=== PATIENT | female | born 1995 | race Caucasian/White ===

== ENCOUNTER 2016-07-03 11:17 | Emergency (ER) | payer SELFPAY ==
[~2016-07-03] VITALS: Ht 157.5 cm; Wt 63.5 kg
[2016-07-03 11:23] VITALS: BP 145/83
--- NOTE | 2016-07-03 11:27 | NUR ---
PT AMBULATED TO BED 5 AT THIS TIME.
--- NOTE | 2016-07-03 11:30 | NUR ---
20/F BIB SELF C/O RASH AT FACE , NECK ,BOTH ARMS, ANTERIOR OF BODY ,LEFT LEG X 2 DAYS AGO PT STATES PAIN ALL OF BODY. DENIES N/V/D; AAOX4 WITH EVEN AND STEADY GAIT; LUNGS CLEAR BL; HR EVEN AND REGULAR; PT DENIES ANY FEVER, CP OR SOB AT THIS TIME; PATIENT STATES PAIN OF 5/10 AT THIS TIME; VSS; PATIENT POSITIONED FOR COMFORT; HOB ELEVATED; BEDRAILS UP X2; BED DOWN. ER MD MADE AWARE OF PT STATUS.
--- NOTE | 2016-07-03 11:44 | NUR ---
ER MD DR DUDLEY EVALUATING PT AT BEDSIDE
[2016-07-03 12:00] VITALS: BP 120/72
--- NOTE | 2016-07-03 12:00 | NUR ---
Patient discharged with v/s stable. Written and verbal after care instructions given and explained. Patient alert, oriented and verbalized understanding of instructions. Ambulatory with steady gait. All questions addressed prior to discharge. ID band removed. Patient advised to follow up with PMD. Rx of BENADRYL ALLERGY & PREDNISONE given. Patient educated on indication of medication including possible reaction and side effects. Opportunity to ask questions provided and answered.
== END 2016-07-03 12:00 | disposition home or self-care (01) ==
LOC: MED 11:17
DX: R21 Rash and other nonspecific skin eruption (principal)

== ENCOUNTER 2017-06-12 22:01 | Emergency (ER) | payer OTHER ==
[~2017-06-12] VITALS: Ht 157.5 cm; Wt 70.8 kg
[2017-06-12 22:04] VITALS: BP 116/68
--- NOTE | 2017-06-12 22:10 | NUR ---
PT.AMBULATED TO [facility]
--- NOTE | 2017-06-12 22:40 | NUR ---
21Y F BIB FAMILY FOR WOUND CHECK. PT HAD DONE AT [facility] [place] 06/01/17. PT STATES SHE NOTICED FOUL SMELL FROM WOUND AND CLEAR DISCHARGE. PT HAS SOME NAUSEA BUT NO VOMIT OR DIARRHEA.
--- NOTE | 2017-06-12 22:58 | NUR ---
MOVED TO ER BED 1
--- NOTE | 2017-06-12 23:05 | NUR ---
S/P C/S ON 06/02, SX.WOUND DISCHARGE AND FOUL SMELL. NO MED. HX.PATIENT PRESENTS TO ED WITH AB PAIN FROM ON 06/02. PT STATES SYMPTOMS OF WOUND DISCHARGE AND FOUL SMELL. NO MED. DENIES N/V/D; AAOX4 WITH EVEN AND STEADY GAIT; LUNGS CLEAR BL; HR EVEN AND REGULAR; PT DENIES ANY FEVER, CP, SOB, OR COUGH AT THIS TIME; PATIENT STATES PAIN OF 7/10 AT THIS TIME; VSS; PATIENT POSITIONED FOR COMFORT; HOB ELEVATED; BEDRAILS UP X2; BED DOWN. ER MD MADE AWARE OF PT STATUS.
[2017-06-13 00:43] VITALS: BP 113/65
--- NOTE | 2017-06-13 00:43 | NUR ---
Patient discharged with v/s stable. Written and verbal after care instructions given and explained. Patient verbalized understanding. Ambulatory with steady gait. All questions addressed prior to discharge. Advised to follow up with PMD.
== END 2017-06-13 00:43 | disposition home or self-care (01) ==
LOC: MED 22:01
DX: Z48.89 Encounter for other specified surgical aftercare (principal)
CPT/HCPCS: 99283